=== PATIENT | female | born 1940 | race Caucasian/White ===

== ENCOUNTER 2016-10-29 14:44 | Outpatient (CLI) | payer MEDICARE | END 2016-10-29 14:45 | disposition home or self-care (01) | LOC: NAV EKG 14:44 | PROVIDERS: ATTEND Internal Medicine | DX: Z01.818 Encounter for other preprocedural examination (principal) | CPT/HCPCS: 93005 ==

== ENCOUNTER 2017-05-06 10:48 | Outpatient (CLI) | payer MEDICARE ==
--- NOTE | 2017-05-06 12:46 | CT ---
NONCONTRAST SOFT TISSUE NECK CT HISTORY: Dysphagia. The patient feels neck is closing up. COMPARISON: None. TECHNIQUE: A noncontrast soft tissue neck CT is performed in the axial plane. Reformatted images are submitted for interpretation. FINDINGS: There is adequate aeration of the visualized paranasal sinuses. The aerodigestive tract is patent. No mucosal abnormality. 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 Limited evaluation. Limited e valuation of the oral cavity due to dental amalgam artifact. No obvious oral cavity masses. [place] e fatty [place] of the tongue is preserved. The epiglottis has a normal caliber. Pre-epiglottic fat is preserved. There is mass effect upon the posterior left larynx due to medial deviation of the le ft carotid artery. There is heterogeneous attenuation of the right thyroid lobe. 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 Please refer to the thyroid ultrasound from July 2014 for further detail. Symmetric attenuation of the sternocleidomastoid muscles. No evidence of lymphadenopathy by size cr iteria. Symmetric attenuation of the parotid and submandibular glands. There are varying degrees of central canal stenosis and foraminal narrowing on the basis of degenera tive change. Limited evaluation by technique. Cervical spine vertebral body height is maintained. No fracture. There is grade 1 anterolisthesis of C4 upon C5. There is also grade 1 anterolisthesi s of C5 upon C6. The lateral masses of C1 and C2 articular appropriately. There are mild degenerative changes of the posterior elements throughout the cervical spine. The upper mediastinum and lung apices are unremarkable. There is mass effect upon the thoracic esophagus, at approximately the T1 level, due to the right ca rotid artery. There is mild leftward deviation of the thoracic esophagus. Consider dedicated cervi shirley and thoracic esophagram. IMPRESSION: 1. Limited evaluation with lack of intravenous contrast. 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 2. Heterogeneous appearance of the right thyroid lobe. Refer to thyroid ultrasound from August 08 for further details. 3. There is mass effect upon the proximal thoracic esophagus due to the right carotid artery. Cons ider esophagram. POS: [facility]
--- NOTE | 2017-05-06 13:35 | RAD ---
PA AND LATERAL CHEST: Indication: History of dysphagia and feeling like the neck is closing up. Comparison: None. FINDINGS: No airspace consolidation or pleural effusion is evident. Heart size is accentuated by the low lung volumes. No acute osseous abnormality is evident. IMPRESSION: No definite cardiopulmonary abnormality. Low lung volumes. POS: [facility]
== END 2017-05-06 10:49 | disposition home or self-care (01) ==
LOC: NAV ERS 10:48 → NAV CT 10:49
PROVIDERS: ATTEND Internal Medicine
DX: I69.391 Dysphagia following cerebral infarction (principal)
CPT/HCPCS: 70490; 71020

== ENCOUNTER 2019-07-11 13:23 | Emergency (ER) | payer MEDICARE | END 2019-07-11 14:45 | disposition home or self-care (01) | LOC: NAV ERS 13:23 | DX: R13.10 Dysphagia, unspecified (principal); E03.9 Hypothyroidism, unspecified; I10 Essential (primary) hypertension; C50.919 Malignant neoplasm of unspecified site of unspecified female breast; Z79.82 Long term (current) use of aspirin; Z79.899 Other long term (current) drug therapy | CPT/HCPCS: 93005 ==

== ENCOUNTER 2021-01-26 16:47 | Emergency (ER) | payer MEDICARE ==
[2021-01-26 17:24] LABS: Bilirubin Negative (Negative); Blood, Urine Negative (Negative); Glucose, Urine (Dipstick) Negative (Negative); Ketone, Urine Negative (Negative); Leukocyte Moderate (Negative); Nitrite Negative (Negative); Protein, Urine (Dipstick) Negative (Neg-Trace); pH, Urine 6.5 (5.0-9.0)
[2021-01-26 17:31] LABS: Clarity SL HAZY (Clear)
[2021-01-26 17:39] LABS: #Basophils 0.1 thou/uL (0.0-0.2); #Lymphocytes 0.6 thou/uL (1.20-3.40); #Monocytes 0.7 thou/uL (0.11-0.59); #Neutrophils 4.5 thou/uL (1.40-6.50); %Basophils 1.2 % (0.0-1.0); %Eosinophils 0.1 % (0.0-10.0); %Lymphocytes 10.4 % (21.0-51.0); %Monocytes 12.4 % (0.0-10.0); %Neutrophils 75.9 % (42.0-75.0); Hemoglobin 13.2 g/dL (12.0-16.0); Mean Corpuscular HGB CONC 30.9 g/dL (32.0-36.0); Mean Corpuscular Hemoglobin 26.7 pg (27.0-31.0); Mean Corpuscular Volume 86.6 fL (78.0-98.0); Mean Platelet Volume 8.1 fL (7.4-10.4); Platelet Count 187 thou/uL (130-400); RBC Distribution Width 12.7 % (11.5-14.5); Red Blood Cell (RBC) Count 4.95 mill/uL (4.20-5.40)
[2021-01-26 17:43] LABS: WBC/HPF 0-3 HPF (0-3)
[2021-01-26 17:44] LABS: Squamous Epithelial 0-3 HPF (0-3)
[2021-01-26 17:58] LABS: ALT (SGPT) 263 U/L (8-55); AST (SGOT) 322 U/L (5-34); Albumin 3.8 g/dL (3.4-4.8); Alkaline Phosphatase 328 U/L (40-110); Anion Gap 13 mmol/L (10-20); BUN (Urea Nitrogen) 11 mg/dL (9.8-20.1); Bilirubin, Total 0.5 mg/dL (0.2-1.2); Calc. Creatinine Clearance 0 mL/min (70-130); Calcium 8.3 mg/dL (7.8-10.44); Carbon Dioxide 25 mmol/L (23-31); Chloride 101 mmol/L (98-107); Globulin 2.3 g/dL (2.4-3.5); Glucose 115 mg/dL (83-110); Lipase 42 U/L (8-78); Protein, Total 6.1 g/dL (5.8-8.1); Sodium 136 mmol/L (136-145)
[2021-01-26] MEDS ORDERED: Pantoprazole 40 MG VIAL ONE (18:13)
== END 2021-01-26 20:52 | disposition short-term general hospital (02) ==
LOC: NAV ERS 16:47
DX: K83.1 Obstruction of bile duct (principal); E03.9 Hypothyroidism, unspecified; E78.5 Hyperlipidemia, unspecified; E78.00 Pure hypercholesterolemia, unspecified; I10 Essential (primary) hypertension; Z79.82 Long term (current) use of aspirin; Z79.899 Other long term (current) drug therapy
CPT/HCPCS: 74177; 80053; 81003; 81015; 83690; 85025; 94760; 96374; C9113

== ENCOUNTER 2021-04-18 10:20 | Emergency (ER) | payer OTHER, MEDICARE | END 2021-04-18 11:55 | disposition home or self-care (01) | LOC: NAV ERS 10:20 | DX: S00.12XA Contusion of left eyelid and periocular area, initial encounter (principal); M79.601 Pain in right arm; I10 Essential (primary) hypertension; E78.5 Hyperlipidemia, unspecified; E78.00 Pure hypercholesterolemia, unspecified; Z79.82 Long term (current) use of aspirin; Z79.899 Other long term (current) drug therapy; W10.9XXA Fall (on) (from) unspecified stairs and steps, initial encounter | CPT/HCPCS: 70450; 70486 ==

== ENCOUNTER 2023-02-06 10:14 | Inpatient (IN) | payer MEDICARE ==
[2023-02-07] MEDS ORDERED: Ondansetron ODT 4 MG TAB SL PRN (12:38)
[2023-02-07] MEDS: Gabapentin 300 MG CAP PO SCH (21:18)
[2023-02-07] MEDS: Aspirin 81 mg Enteric Coated Tablet PO SCH (21:18)
[2023-02-07] MEDS: traMADol HCl 50 MG TAB PO PRN (21:19)
[2023-02-08 05:33] LABS: #Basophils 0.1 thou/uL (0.0-0.2); #Eosinphils 0.2 thou/uL (0.0-0.7); #Monocytes 0.5 thou/uL (0.11-0.59); #Neutrophils 5.6 thou/uL (1.40-6.50); %Eosinophils 2.3 % (0.0-10.0); %Lymphocytes 13.3 % (21.0-51.0); %Neutrophils 76.5 % (42.0-75.0); Hemoglobin 10.7 g/dL (12.0-16.0); Mean Corpuscular HGB CONC 31.8 g/dL (32.0-36.0); Mean Corpuscular Hemoglobin 27.5 pg (27.0-31.0); Mean Corpuscular Volume 86.4 fl (78.0-98.0); RBC Distribution Width 11.9 % (11.5-14.5); White Blood Cell (WBC) Count 7.3 10x3/uL (4.8-10.8)
[2023-02-08 05:47] LABS: ALT (SGPT) 85 U/L (8-55); AST (SGOT) 33 U/L (5-34); Alkaline Phosphatase 199 U/L (40-110); Anion Gap 16 mmol/L (10-20); BUN (Urea Nitrogen) 10 mg/dL (9.8-20.1); Bilirubin, Total 0.4 mg/dL (0.2-1.2); Calc. Creatinine Clearance 70 mL/min (70-130); Calcium 8.6 mg/dL (7.8-10.44); Carbon Dioxide 27 mmol/L (23-31); Chloride 96 mmol/L (98-107); Estimated GFR 87; Globulin 1.9 g/dL (2.4-3.5); Glucose 103 mg/dL (83-110); Potassium 4.3 mmol/L (3.5-5.1); Protein, Total 4.9 g/dL (5.8-8.1); Sodium 135 mmol/L (136-145)
[2023-02-08] MEDS: Levothyroxine Sodium 100 MCG TAB PO SCH (06:32)
[2023-02-08] MEDS: traMADol HCl 50 MG TAB PO PRN ×3 (06:38→21:40)
[2023-02-08] MEDS: Ferrous Gluconate 324 MG TAB PO SCH (08:42)
[2023-02-08] MEDS: Hydrochlorothiazide 25 MG TAB PO SCH (08:42)
[2023-02-08] MEDS: Losartan Potassium 50 MG TAB PO SCH (08:42)
[2023-02-08] MEDS: Aspirin 81 mg Enteric Coated Tablet PO SCH ×2 (08:42→21:40)
[2023-02-08] MEDS: Calcium Carbonate 600 MG + Vit D TAB PO SCH (08:42)
[2023-02-08] MEDS ORDERED: Polyethylene Glycol 3350 17 GM Packet PO PRN (09:34)
[2023-02-08] MEDS: Acetaminophen 325 MG TAB PO PRN (11:13)
[2023-02-08 11:59] LABS: Platelet Count 344 10x3/uL (130-400)
[2023-02-08] MEDS: Gabapentin 300 MG CAP PO SCH (21:42)
[2023-02-09] MEDS: traMADol HCl 50 MG TAB PO PRN ×3 (06:36→22:24)
[2023-02-09] MEDS: Levothyroxine Sodium 100 MCG TAB PO SCH (06:36)
[2023-02-09] MEDS: Hydrochlorothiazide 25 MG TAB PO SCH (08:46)
[2023-02-09] MEDS: Losartan Potassium 50 MG TAB PO SCH (08:48)
[2023-02-09] MEDS: Ferrous Gluconate 324 MG TAB PO SCH (08:48)
[2023-02-09] MEDS: Calcium Carbonate 600 MG + Vit D TAB PO SCH (08:49)
[2023-02-09] MEDS: Aspirin 81 mg Enteric Coated Tablet PO SCH ×2 (08:49→20:34)
[2023-02-09] MEDS ORDERED: Polyethylene Glycol 3350 17 GM Packet PO SCH (12:15)
[2023-02-09 13:29] LABS: Anion Gap 17 mmol/L (10-20); Globulin 2.8 g/dL (2.4-3.5)
[2023-02-09 13:32] LABS: ALT (SGPT) 64 U/L (8-55); AST (SGOT) 28 U/L (5-34); Albumin 3.4 g/dL (3.4-4.8); Alkaline Phosphatase 180 U/L (40-110); BUN (Urea Nitrogen) 12 mg/dL (9.8-20.1); Bilirubin, Total 0.5 mg/dL (0.2-1.2); Calc. Creatinine Clearance 69 mL/min (70-130); Carbon Dioxide 25 mmol/L (23-31); Chloride 92 mmol/L (98-107); Estimated GFR 87; Glucose 113 mg/dL (83-110); Potassium 3.7 mmol/L (3.5-5.1); Protein, Total 6.2 g/dL (5.8-8.1); Sodium 130 mmol/L (136-145)
[2023-02-09] MEDS: Gabapentin 300 MG CAP PO SCH (20:32)
[2023-02-10] MEDS: Levothyroxine Sodium 100 MCG TAB PO SCH (06:27)
[2023-02-10] MEDS: Polyethylene Glycol 3350 17 GM Packet PO SCH (09:32)
[2023-02-10] MEDS: Aspirin 81 mg Enteric Coated Tablet PO SCH ×2 (09:32→20:57)
[2023-02-10] MEDS: traMADol HCl 50 MG TAB PO PRN ×3 (09:33→20:56)
[2023-02-10] MEDS: Calcium Carbonate 600 MG + Vit D TAB PO SCH (09:34)
[2023-02-10] MEDS: Losartan Potassium 50 MG TAB PO SCH (09:34)
[2023-02-10] MEDS: Hydrochlorothiazide 25 MG TAB PO SCH (09:34)
[2023-02-10] MEDS: Ferrous Gluconate 324 MG TAB PO SCH (09:34)
[2023-02-10] MEDS: Gabapentin 300 MG CAP PO SCH (20:57)
[2023-02-11] MEDS: traMADol HCl 50 MG TAB PO PRN ×3 (05:38→20:54)
[2023-02-11] MEDS: Levothyroxine Sodium 100 MCG TAB PO SCH (05:39)
[2023-02-11 06:06] LABS: #Basophils 0.1 thou/uL (0.0-0.2); #Eosinphils 0.3 thou/uL (0.0-0.7); #Monocytes 1.2 thou/uL (0.11-0.59); #Neutrophils 7.2 thou/uL (1.40-6.50); %Basophils 1.1 % (0.0-1.0); %Eosinophils 3.3 % (0.0-10.0); %Lymphocytes 9.8 % (21.0-51.0); %Neutrophils 73.8 % (42.0-75.0); Hemoglobin 9.8 g/dL (12.0-16.0); Mean Corpuscular HGB CONC 31.8 g/dL (32.0-36.0); Mean Corpuscular Hemoglobin 27.6 pg (27.0-31.0); Mean Corpuscular Volume 86.8 fl (78.0-98.0); Mean Platelet Volume 5.9 fL (7.4-10.4); Platelet Count 432 10x3/uL (130-400); RBC Distribution Width 12.3 % (11.5-14.5); Red Blood Cell (RBC) Count 3.56 mill/uL (4.20-5.40); White Blood Cell (WBC) Count 9.8 10x3/uL (4.8-10.8)
[2023-02-11 06:21] LABS: ALT (SGPT) 44 U/L (8-55); AST (SGOT) 20 U/L (5-34); Alkaline Phosphatase 143 U/L (40-110); Anion Gap 16 mmol/L (10-20); BUN (Urea Nitrogen) 12 mg/dL (9.8-20.1); Bilirubin, Total 0.5 mg/dL (0.2-1.2); Calc. Creatinine Clearance 73 mL/min (70-130); Calcium 8.6 mg/dL (7.8-10.44); Carbon Dioxide 25 mmol/L (23-31); Chloride 93 mmol/L (98-107); Estimated GFR 88; Globulin 2.4 g/dL (2.4-3.5); Glucose 100 mg/dL (83-110); Protein, Total 5.4 g/dL (5.8-8.1); Sodium 130 mmol/L (136-145)
[2023-02-11] MEDS: Losartan Potassium 50 MG TAB PO SCH (08:16)
[2023-02-11] MEDS: Ferrous Gluconate 324 MG TAB PO SCH (08:16)
[2023-02-11] MEDS: Calcium Carbonate 600 MG + Vit D TAB PO SCH (08:16)
[2023-02-11] MEDS: Aspirin 81 mg Enteric Coated Tablet PO SCH ×2 (08:16→20:55)
[2023-02-11] MEDS: Hydrochlorothiazide 25 MG TAB PO SCH (08:16)
[2023-02-11] MEDS: Polyethylene Glycol 3350 17 GM Packet PO SCH (08:18)
[2023-02-11] MEDS: Gabapentin 300 MG CAP PO SCH (20:55)
[2023-02-12] MEDS: traMADol HCl 50 MG TAB PO PRN ×3 (04:14→20:14)
[2023-02-12] MEDS: Levothyroxine Sodium 100 MCG TAB PO SCH (05:58)
[2023-02-12] MEDS: Ferrous Gluconate 324 MG TAB PO SCH (08:48)
[2023-02-12] MEDS: Calcium Carbonate 600 MG + Vit D TAB PO SCH (08:49)
[2023-02-12] MEDS: Polyethylene Glycol 3350 17 GM Packet PO SCH (08:49)
[2023-02-12] MEDS: Hydrochlorothiazide 25 MG TAB PO SCH (08:49)
[2023-02-12] MEDS: Losartan Potassium 50 MG TAB PO SCH (08:49)
[2023-02-12] MEDS: Aspirin 81 mg Enteric Coated Tablet PO SCH ×2 (08:49→20:14)
[2023-02-12] MEDS: Gabapentin 300 MG CAP PO SCH (20:13)
[2023-02-13] MEDS: Levothyroxine Sodium 100 MCG TAB PO SCH (05:28)
[2023-02-13] MEDS: Ibuprofen 200 MG TAB PO PRN (08:17)
[2023-02-13] MEDS: Ferrous Gluconate 324 MG TAB PO SCH (08:17)
[2023-02-13] MEDS: Losartan Potassium 50 MG TAB PO SCH (08:17)
[2023-02-13] MEDS: Calcium Carbonate 600 MG + Vit D TAB PO SCH (08:17)
[2023-02-13] MEDS: Aspirin 81 mg Enteric Coated Tablet PO SCH ×2 (08:17→21:05)
[2023-02-13] MEDS: Hydrochlorothiazide 25 MG TAB PO SCH (08:18)
[2023-02-13] MEDS: Polyethylene Glycol 3350 17 GM Packet PO SCH (09:07)
[2023-02-13] MEDS: traMADol HCl 50 MG TAB PO PRN ×2 (12:01→21:05)
[2023-02-13] MEDS: Gabapentin 300 MG CAP PO SCH (21:04)
[2023-02-14] MEDS: Levothyroxine Sodium 100 MCG TAB PO SCH (05:41)
[2023-02-14] MEDS: traMADol HCl 50 MG TAB PO PRN ×2 (09:09→15:01)
[2023-02-14] MEDS: Ferrous Gluconate 324 MG TAB PO SCH (09:10)
[2023-02-14] MEDS: Hydrochlorothiazide 25 MG TAB PO SCH (09:10)
[2023-02-14] MEDS: Calcium Carbonate 600 MG + Vit D TAB PO SCH (09:10)
[2023-02-14] MEDS: Losartan Potassium 50 MG TAB PO SCH (09:10)
[2023-02-14] MEDS: Polyethylene Glycol 3350 17 GM Packet PO SCH (09:11)
[2023-02-14] MEDS: Aspirin 81 mg Enteric Coated Tablet PO SCH ×2 (09:11→20:48)
[2023-02-14] MEDS: Ibuprofen 200 MG TAB PO PRN ×2 (12:48→20:47)
[2023-02-14] MEDS: Senokot S 8.6-50 MG TAB PO PRN (14:45)
[2023-02-14] MEDS: Gabapentin 300 MG CAP PO SCH (20:47)
[2023-02-14] MEDS: Zolpidem Tartrate 5 MG TAB PO PRN (20:50)
[2023-02-15 05:47] LABS: #Basophils 0.1 thou/uL (0.0-0.2); #Eosinphils 0.4 thou/uL (0.0-0.7); #Lymphocytes 0.9 thou/uL (1.20-3.40); #Neutrophils 8.4 thou/uL (1.40-6.50); %Basophils 0.9 % (0.0-1.0); %Eosinophils 3.5 % (0.0-10.0); %Lymphocytes 8.3 % (21.0-51.0); %Monocytes 9.4 % (0.0-10.0); %Neutrophils 77.9 % (42.0-75.0); Hemoglobin 9.7 g/dL (12.0-16.0); Mean Corpuscular HGB CONC 32.1 g/dL (32.0-36.0); Mean Corpuscular Hemoglobin 27.7 pg (27.0-31.0); Mean Corpuscular Volume 86.3 fl (78.0-98.0); Mean Platelet Volume 5.8 fL (7.4-10.4); Platelet Count 404 10x3/uL (130-400); RBC Distribution Width 13.7 % (11.5-14.5); Red Blood Cell (RBC) Count 3.49 mill/uL (4.20-5.40); White Blood Cell (WBC) Count 10.8 10x3/uL (4.8-10.8)
[2023-02-15] MEDS: Levothyroxine Sodium 100 MCG TAB PO SCH (06:06)
[2023-02-15 06:08] LABS: ALT (SGPT) 21 U/L (8-55); AST (SGOT) 11 U/L (5-34); Albumin 2.8 g/dL (3.4-4.8); Alkaline Phosphatase 132 U/L (40-110); Anion Gap 15 mmol/L (10-20); BUN (Urea Nitrogen) 15 mg/dL (9.8-20.1); Bilirubin, Total 0.4 mg/dL (0.2-1.2); Calc. Creatinine Clearance 69 mL/min (70-130); Calcium 8.4 mg/dL (7.8-10.44); Carbon Dioxide 27 mmol/L (23-31); Chloride 95 mmol/L (98-107); Estimated GFR 87; Globulin 2.3 g/dL (2.4-3.5); Glucose 98 mg/dL (83-110); Potassium 3.5 mmol/L (3.5-5.1); Protein, Total 5.1 g/dL (5.8-8.1); Sodium 133 mmol/L (136-145)
[2023-02-15] MEDS: Aspirin 81 mg Enteric Coated Tablet PO SCH ×2 (08:41→20:48)
[2023-02-15] MEDS: Losartan Potassium 50 MG TAB PO SCH (08:41)
[2023-02-15] MEDS: Calcium Carbonate 600 MG + Vit D TAB PO SCH (08:41)
[2023-02-15] MEDS: Polyethylene Glycol 3350 17 GM Packet PO SCH (08:41)
[2023-02-15] MEDS: Ferrous Gluconate 324 MG TAB PO SCH (08:42)
[2023-02-15] MEDS: Hydrochlorothiazide 25 MG TAB PO SCH (08:43)
[2023-02-15] MEDS: Ibuprofen 200 MG TAB PO PRN ×2 (08:52→16:27)
[2023-02-15] MEDS: Zolpidem Tartrate 5 MG TAB PO PRN (20:48)
[2023-02-15] MEDS: Gabapentin 300 MG CAP PO SCH (20:48)
[2023-02-15] MEDS: Acetaminophen 325 MG TAB PO PRN (20:49)
[2023-02-16] MEDS: Levothyroxine Sodium 100 MCG TAB PO SCH (05:58)
[2023-02-16] MEDS: Aspirin 81 mg Enteric Coated Tablet PO SCH ×2 (08:55→21:25)
[2023-02-16] MEDS: Ferrous Gluconate 324 MG TAB PO SCH (08:55)
[2023-02-16] MEDS: Losartan Potassium 50 MG TAB PO SCH (08:55)
[2023-02-16] MEDS: Calcium Carbonate 600 MG + Vit D TAB PO SCH (08:55)
[2023-02-16] MEDS: Hydrochlorothiazide 25 MG TAB PO SCH (08:56)
[2023-02-16] MEDS: Polyethylene Glycol 3350 17 GM Packet PO SCH (08:56)
[2023-02-16] MEDS: Ibuprofen 200 MG TAB PO PRN (09:05)
[2023-02-16] MEDS: Zolpidem Tartrate 5 MG TAB PO PRN (21:25)
[2023-02-16] MEDS: traMADol HCl 50 MG TAB PO PRN (21:25)
[2023-02-16] MEDS: Gabapentin 300 MG CAP PO SCH (21:26)
[2023-02-17] MEDS: Levothyroxine Sodium 100 MCG TAB PO SCH (05:59)
[2023-02-17] MEDS: Calcium Carbonate 600 MG + Vit D TAB PO SCH (08:28)
[2023-02-17] MEDS: Hydrochlorothiazide 25 MG TAB PO SCH (08:29)
[2023-02-17] MEDS: Ferrous Gluconate 324 MG TAB PO SCH (08:29)
[2023-02-17] MEDS: Losartan Potassium 50 MG TAB PO SCH (08:29)
[2023-02-17] MEDS: Aspirin 81 mg Enteric Coated Tablet PO SCH ×2 (08:29→20:55)
[2023-02-17] MEDS: Ibuprofen 200 MG TAB PO PRN (08:37)
[2023-02-17] MEDS: Polyethylene Glycol 3350 17 GM Packet PO SCH (08:41)
[2023-02-17] MEDS: Gabapentin 300 MG CAP PO SCH (20:55)
[2023-02-17] MEDS: Zolpidem Tartrate 5 MG TAB PO PRN (20:55)
[2023-02-17] MEDS: traMADol HCl 50 MG TAB PO PRN (20:56)
[2023-02-18] MEDS: Levothyroxine Sodium 100 MCG TAB PO SCH (06:11)
[2023-02-18] MEDS: Ibuprofen 200 MG TAB PO PRN (08:31)
[2023-02-18] MEDS: Losartan Potassium 50 MG TAB PO SCH (08:33)
[2023-02-18] MEDS: Calcium Carbonate 600 MG + Vit D TAB PO SCH (08:33)
[2023-02-18] MEDS: Aspirin 81 mg Enteric Coated Tablet PO SCH ×2 (08:33→20:36)
[2023-02-18] MEDS: Hydrochlorothiazide 25 MG TAB PO SCH (08:34)
[2023-02-18] MEDS: Ferrous Gluconate 324 MG TAB PO SCH (08:35)
[2023-02-18] MEDS: Polyethylene Glycol 3350 17 GM Packet PO SCH (08:35)
[2023-02-18] MEDS: Gabapentin 300 MG CAP PO SCH (20:36)
[2023-02-18] MEDS: Zolpidem Tartrate 5 MG TAB PO PRN (20:37)
[2023-02-18] MEDS: traMADol HCl 50 MG TAB PO PRN (20:37)
[2023-02-19] MEDS: Levothyroxine Sodium 100 MCG TAB PO SCH (05:29)
[2023-02-19 06:01] LABS: #Basophils 0.1 thou/uL (0.0-0.2); #Eosinphils 0.3 thou/uL (0.0-0.7); #Lymphocytes 0.7 thou/uL (1.20-3.40); #Neutrophils 7.4 thou/uL (1.40-6.50); %Basophils 1.2 % (0.0-1.0); %Eosinophils 3.6 % (0.0-10.0); %Lymphocytes 7.2 % (21.0-51.0); %Monocytes 10.3 % (0.0-10.0); %Neutrophils 77.7 % (42.0-75.0); Hemoglobin 10.2 g/dL (12.0-16.0); Mean Corpuscular Hemoglobin 27.4 pg (27.0-31.0); Mean Corpuscular Volume 85.5 fl (78.0-98.0); Mean Platelet Volume 5.8 fL (7.4-10.4); Platelet Count 414 10x3/uL (130-400); RBC Distribution Width 13.7 % (11.5-14.5); Red Blood Cell (RBC) Count 3.71 mill/uL (4.20-5.40); White Blood Cell (WBC) Count 9.5 10x3/uL (4.8-10.8)
[2023-02-19 06:12] LABS: ALT (SGPT) 12 U/L (8-55); AST (SGOT) 11 U/L (5-34); Alkaline Phosphatase 121 U/L (40-110); Anion Gap 12 mmol/L (10-20); BUN (Urea Nitrogen) 14 mg/dL (9.8-20.1); Bilirubin, Total 0.4 mg/dL (0.2-1.2); Calc. Creatinine Clearance 71 mL/min (70-130); Calcium 8.6 mg/dL (7.8-10.44); Carbon Dioxide 30 mmol/L (23-31); Chloride 95 mmol/L (98-107); Estimated GFR 87; Globulin 2.3 g/dL (2.4-3.5); Glucose 103 mg/dL (83-110); Potassium 3.8 mmol/L (3.5-5.1); Protein, Total 5.3 g/dL (5.8-8.1); Sodium 133 mmol/L (136-145)
[2023-02-19] MEDS: Losartan Potassium 50 MG TAB PO SCH (07:41)
[2023-02-19] MEDS: Calcium Carbonate 600 MG + Vit D TAB PO SCH (07:41)
[2023-02-19] MEDS: Ferrous Gluconate 324 MG TAB PO SCH (07:41)
[2023-02-19] MEDS: Aspirin 81 mg Enteric Coated Tablet PO SCH ×2 (07:41→20:19)
[2023-02-19] MEDS: Hydrochlorothiazide 25 MG TAB PO SCH (07:45)
[2023-02-19] MEDS: Polyethylene Glycol 3350 17 GM Packet PO SCH (07:46)
[2023-02-19] MEDS: Ibuprofen 200 MG TAB PO PRN (11:54)
[2023-02-19] MEDS: Gabapentin 300 MG CAP PO SCH (20:18)
[2023-02-19] MEDS: traMADol HCl 50 MG TAB PO PRN (20:19)
[2023-02-20] MEDS: Levothyroxine Sodium 100 MCG TAB PO SCH (05:30)
[2023-02-20] MEDS: Polyethylene Glycol 3350 17 GM Packet PO SCH (07:50)
[2023-02-20] MEDS: Ibuprofen 200 MG TAB PO PRN (07:50)
[2023-02-20] MEDS: Calcium Carbonate 600 MG + Vit D TAB PO SCH (07:50)
[2023-02-20] MEDS: Losartan Potassium 50 MG TAB PO SCH (07:51)
[2023-02-20] MEDS: Ferrous Gluconate 324 MG TAB PO SCH (07:52)
[2023-02-20] MEDS: Aspirin 81 mg Enteric Coated Tablet PO SCH ×2 (07:52→21:29)
[2023-02-20] MEDS: Hydrochlorothiazide 25 MG TAB PO SCH (07:52)
[2023-02-20] MEDS: traMADol HCl 50 MG TAB PO PRN (21:28)
[2023-02-20] MEDS: Gabapentin 300 MG CAP PO SCH (21:29)
[2023-02-20] MEDS: Zolpidem Tartrate 5 MG TAB PO PRN (21:30)
[2023-02-21] MEDS: Levothyroxine Sodium 100 MCG TAB PO SCH (05:58)
[2023-02-21] MEDS: Polyethylene Glycol 3350 17 GM Packet PO SCH (08:27)
[2023-02-21] MEDS: Calcium Carbonate 600 MG + Vit D TAB PO SCH (08:27)
[2023-02-21] MEDS: Hydrochlorothiazide 25 MG TAB PO SCH (08:27)
[2023-02-21] MEDS: Aspirin 81 mg Enteric Coated Tablet PO SCH ×2 (08:27→21:02)
[2023-02-21] MEDS: Losartan Potassium 50 MG TAB PO SCH (08:28)
[2023-02-21] MEDS: Ferrous Gluconate 324 MG TAB PO SCH (08:28)
[2023-02-21] MEDS: Ibuprofen 200 MG TAB PO PRN ×2 (08:31→21:00)
[2023-02-21] MEDS: Senokot S 8.6-50 MG TAB PO PRN (14:17)
[2023-02-21] MEDS: Gabapentin 300 MG CAP PO SCH (21:01)
[2023-02-22] MEDS: Levothyroxine Sodium 100 MCG TAB PO SCH (06:28)
[2023-02-22] MEDS: Aspirin 81 mg Enteric Coated Tablet PO SCH ×2 (08:10→21:13)
[2023-02-22] MEDS: Ferrous Gluconate 324 MG TAB PO SCH (08:10)
[2023-02-22] MEDS: Calcium Carbonate 600 MG + Vit D TAB PO SCH (08:10)
[2023-02-22] MEDS: Hydrochlorothiazide 25 MG TAB PO SCH (08:10)
[2023-02-22] MEDS: Losartan Potassium 50 MG TAB PO SCH (08:10)
[2023-02-22] MEDS: Polyethylene Glycol 3350 17 GM Packet PO SCH (08:10)
[2023-02-22] MEDS: Gabapentin 300 MG CAP PO SCH (21:11)
[2023-02-22] MEDS: Ibuprofen 200 MG TAB PO PRN (21:16)
[2023-02-23 04:59] VITALS: BMI 26.6
[2023-02-23] MEDS: Levothyroxine Sodium 100 MCG TAB PO SCH (05:42)
[2023-02-23] MEDS: Polyethylene Glycol 3350 17 GM Packet PO SCH (08:18)
[2023-02-23] MEDS: Losartan Potassium 50 MG TAB PO SCH (08:19)
[2023-02-23] MEDS: Aspirin 81 mg Enteric Coated Tablet PO SCH ×2 (08:19→21:01)
[2023-02-23] MEDS: Hydrochlorothiazide 25 MG TAB PO SCH (08:19)
[2023-02-23] MEDS: Calcium Carbonate 600 MG + Vit D TAB PO SCH (08:19)
[2023-02-23] MEDS: Ferrous Gluconate 324 MG TAB PO SCH (08:19)
[2023-02-23] MEDS: Simethicone Chewable 80 MG TAB PO PRN ×2 (13:19→21:00)
[2023-02-23] MEDS: Acetaminophen 325 MG TAB PO PRN (21:01)
[2023-02-23] MEDS: Gabapentin 300 MG CAP PO SCH (21:02)
[2023-02-24] MEDS: Levothyroxine Sodium 100 MCG TAB PO SCH (06:00)
[2023-02-24] MEDS: Acetaminophen 325 MG TAB PO PRN ×2 (09:07→20:41)
[2023-02-24] MEDS: Hydrochlorothiazide 25 MG TAB PO SCH (09:08)
[2023-02-24] MEDS: Simethicone Chewable 80 MG TAB PO PRN (09:08)
[2023-02-24] MEDS: Calcium Carbonate 600 MG + Vit D TAB PO SCH (09:08)
[2023-02-24] MEDS: Ferrous Gluconate 324 MG TAB PO SCH (09:09)
[2023-02-24] MEDS: Losartan Potassium 50 MG TAB PO SCH (09:09)
[2023-02-24] MEDS: Polyethylene Glycol 3350 17 GM Packet PO SCH (09:09)
[2023-02-24] MEDS: Aspirin 81 mg Enteric Coated Tablet PO SCH ×2 (09:09→20:41)
[2023-02-24] MEDS: Gabapentin 300 MG CAP PO SCH (20:40)
[2023-02-25] MEDS: Levothyroxine Sodium 100 MCG TAB PO SCH (05:19)
[2023-02-25 06:06] LABS: #Basophils 0.1 thou/uL (0.0-0.2); #Eosinphils 0.2 thou/uL (0.0-0.7); #Lymphocytes 0.9 thou/uL (1.20-3.40); #Monocytes 0.7 thou/uL (0.11-0.59); #Neutrophils 5.8 thou/uL (1.40-6.50); %Eosinophils 2.4 % (0.0-10.0); %Lymphocytes 11.9 % (21.0-51.0); %Monocytes 9.1 % (0.0-10.0); %Neutrophils 75.6 % (42.0-75.0); Hemoglobin 10.8 g/dL (12.0-16.0); Mean Corpuscular HGB CONC 31.4 g/dL (32.0-36.0); Mean Corpuscular Hemoglobin 26.8 pg (27.0-31.0); Mean Corpuscular Volume 85.4 fl (78.0-98.0); Platelet Count 430 10x3/uL (130-400); RBC Distribution Width 13.5 % (11.5-14.5); Red Blood Cell (RBC) Count 4.02 mill/uL (4.20-5.40); White Blood Cell (WBC) Count 7.7 10x3/uL (4.8-10.8)
[2023-02-25 06:23] LABS: ALT (SGPT) 8 U/L (8-55); AST (SGOT) 11 U/L (5-34); Albumin 3.3 g/dL (3.4-4.8); Alkaline Phosphatase 127 U/L (40-110); Anion Gap 14 mmol/L (10-20); BUN (Urea Nitrogen) 14 mg/dL (9.8-20.1); Bilirubin, Total 0.3 mg/dL (0.2-1.2); Calc. Creatinine Clearance 65 mL/min (70-130); Calcium 8.9 mg/dL (7.8-10.44); Carbon Dioxide 29 mmol/L (23-31); Chloride 96 mmol/L (98-107); Estimated GFR 86; Globulin 2.4 g/dL (2.4-3.5); Glucose 92 mg/dL (83-110); Potassium 3.5 mmol/L (3.5-5.1); Protein, Total 5.7 g/dL (5.8-8.1); Sodium 135 mmol/L (136-145)
[2023-02-25] MEDS: Calcium Carbonate 600 MG + Vit D TAB PO SCH (08:34)
[2023-02-25] MEDS: Ferrous Gluconate 324 MG TAB PO SCH (08:34)
[2023-02-25] MEDS: Aspirin 81 mg Enteric Coated Tablet PO SCH ×2 (08:34→21:29)
[2023-02-25] MEDS: Acetaminophen 325 MG TAB PO PRN ×3 (08:34→21:29)
[2023-02-25] MEDS: Polyethylene Glycol 3350 17 GM Packet PO SCH (08:34)
[2023-02-25] MEDS: Hydrochlorothiazide 25 MG TAB PO SCH (08:35)
[2023-02-25] MEDS: Losartan Potassium 50 MG TAB PO SCH (08:35)
[2023-02-25] MEDS: Gabapentin 300 MG CAP PO SCH (21:27)
[2023-02-26] MEDS: Levothyroxine Sodium 100 MCG TAB PO SCH (05:26)
[2023-02-26] MEDS: Polyethylene Glycol 3350 17 GM Packet PO SCH (08:09)
[2023-02-26] MEDS: Acetaminophen 325 MG TAB PO PRN ×2 (08:09→20:31)
[2023-02-26] MEDS: Ferrous Gluconate 324 MG TAB PO SCH (08:11)
[2023-02-26] MEDS: Losartan Potassium 50 MG TAB PO SCH (08:11)
[2023-02-26] MEDS: Hydrochlorothiazide 25 MG TAB PO SCH (08:11)
[2023-02-26] MEDS: Calcium Carbonate 600 MG + Vit D TAB PO SCH (08:12)
[2023-02-26] MEDS: Simethicone Chewable 80 MG TAB PO PRN (08:12)
[2023-02-26] MEDS: Aspirin 81 mg Enteric Coated Tablet PO SCH ×2 (08:13→20:32)
[2023-02-26] MEDS: Gabapentin 300 MG CAP PO SCH (20:32)
[2023-02-27] MEDS: Levothyroxine Sodium 100 MCG TAB PO SCH (05:26)
[2023-02-27] MEDS: Aspirin 81 mg Enteric Coated Tablet PO SCH ×2 (08:11→21:06)
[2023-02-27] MEDS: Losartan Potassium 50 MG TAB PO SCH (08:11)
[2023-02-27] MEDS: Hydrochlorothiazide 25 MG TAB PO SCH (08:11)
[2023-02-27] MEDS: Ferrous Gluconate 324 MG TAB PO SCH (08:11)
[2023-02-27] MEDS: Polyethylene Glycol 3350 17 GM Packet PO SCH (08:12)
[2023-02-27] MEDS: Calcium Carbonate 600 MG + Vit D TAB PO SCH (08:12)
[2023-02-27] MEDS: Acetaminophen 325 MG TAB PO PRN ×2 (08:56→21:07)
[2023-02-27] MEDS: Gabapentin 300 MG CAP PO SCH (21:06)
[2023-02-28] MEDS: Levothyroxine Sodium 100 MCG TAB PO SCH (05:36)
[2023-02-28 08:10] VITALS: BP 127/70; TEMP 97.9
[2023-02-28] MEDS: Ferrous Gluconate 324 MG TAB PO SCH (08:27)
[2023-02-28] MEDS: Losartan Potassium 50 MG TAB PO SCH (08:28)
[2023-02-28] MEDS: Aspirin 81 mg Enteric Coated Tablet PO SCH (08:28)
[2023-02-28] MEDS: Hydrochlorothiazide 25 MG TAB PO SCH (08:28)
[2023-02-28] MEDS: Calcium Carbonate 600 MG + Vit D TAB PO SCH (08:28)
[2023-02-28] MEDS: Acetaminophen 325 MG TAB PO PRN (08:29)
[2023-02-28] MEDS: Polyethylene Glycol 3350 17 GM Packet PO SCH (08:36)
== END 2023-02-28 11:05 | disposition home or self-care (01) | DRG 560 ==
LOC: NAV ACUTE 02-07 16:56
PROVIDERS: ADMIT Family Medicine; ATTEND Family Medicine
DX: Z47.1 Aftercare following joint replacement surgery (principal); E87.1 Hypo-osmolality and hyponatremia; R53.81 Other malaise; I10 Essential (primary) hypertension; R74.01 Elevation of levels of liver transaminase levels; D69.6 Thrombocytopenia, unspecified; K21.9 Gastro-esophageal reflux disease without esophagitis; E89.0 Postprocedural hypothyroidism; E78.5 Hyperlipidemia, unspecified; Z86.73 Personal history of transient ischemic attack (TIA), and cerebral infarction without residual deficits; Z85.3 Personal history of malignant neoplasm of breast; Z90.11 Acquired absence of right breast and nipple; Z90.710 Acquired absence of both cervix and uterus; Z90.49 Acquired absence of other specified parts of digestive tract; Z98.1 Arthrodesis status; Z88.6 Allergy status to analgesic agent; Z88.8 Allergy status to other drugs, medicaments and biological substances; Z91.040 Latex allergy status
CPT/HCPCS: 36415; 80053; 85025